=== PATIENT | male | born 1960 | race Caucasian/White ===

== ENCOUNTER → 2017-06-19 | Outpatient (CLI) | payer OTHER | LOC: BRMIMAGING 14:43 | PROVIDERS: ATTEND Family Medicine | DX: M50.321 Other cervical disc degeneration at C4-C5 level (principal); M50.322 Other cervical disc degeneration at C5-C6 level; M50.323 Other cervical disc degeneration at C6-C7 level; M11.261 Other chondrocalcinosis, right knee | CPT/HCPCS: 72040-PO; 73562-PO ==